=== PATIENT | female | born 1965 | race Caucasian/White ===

== ENCOUNTER → 2021-01-17 13:02 | Outpatient (BNVA) | payer MEDICARE, MEDICAID, SELFPAY | PROVIDERS: Visit Provider Dietitian, Registered ==

== ENCOUNTER → 2021-03-14 12:21 | Outpatient (BNVA) | payer MEDICARE, MEDICAID, SELFPAY | PROVIDERS: PCP Family Medicine; Visit Provider Dietitian, Registered | DX: E78.00 Pure hypercholesterolemia, unspecified (principal) | CPT/HCPCS: 97803 ==